=== PATIENT | female | born 1980 | race Caucasian/White ===

== ENCOUNTER 2018-12-07 20:00 | Emergency (ER) | payer OTHER ==
[2018-12-07] MEDS: ONDANSETRON (ODT) 4 MG TAB ODT (20:48)
[2018-12-07] MEDS: METHOCARBAMOL 750 MG TAB PO (20:48)
[2018-12-07] MEDS: ACETAMINOPHEN 325 MG TAB PO (20:49)
[2018-12-07] MEDS: HYDROCODONE/APAP (5/325) TAB PO (22:25)
== END 2018-12-07 23:11 | disposition home or self-care (01) ==
LOC: FTE 20:00
DX: S60.012A Contusion of left thumb without damage to nail, initial encounter (principal); S90.32XA Contusion of left foot, initial encounter; S79.912A Unspecified injury of left hip, initial encounter; V49.40XA Driver injured in collision with unspecified motor vehicles in traffic accident, initial encounter
CPT/HCPCS: 29125; 70450; 72040; 73130-LT; 73502; 73510; 73630-LT; 81025; 99284-25